=== PATIENT | female | born 1950 | race Caucasian/White ===

== ENCOUNTER 2023-12-04 18:50 | Observation (INO) | payer MEDICARE ==
[2023-12-05] MEDS ORDERED: Ondansetron PF 4 MG/2 ML Vial IVP PRN (00:09)
[2023-12-05] MEDS ORDERED: Ondansetron ODT 4 MG TAB PO PRN (00:09)
[2023-12-05] MEDS ORDERED: Acetaminophen 325 MG TAB PO PRN (00:09)
[2023-12-05 00:18] VITALS: BMI 32.1
[2023-12-05] MEDS: Atorvastatin Calcium 10 MG TAB PO SCH (00:58)
[2023-12-05] MEDS: Nitroglycerin 2% Ointment 1 INCH/1 GM Packet TOP SCH (00:58)
[2023-12-05 01:38] LABS: #Basophils 0.05 10x3/uL (0.0-0.2); %Basophils 0.6 % (0.0-1.0); %Eosinophils 6.9 % (0.0-10.0); %Lymphocytes 21.3 % (21.0-51.0); %Monocytes 9.4 % (0.0-10.0); %Neutrophils 61.4 % (42.0-75.0); Hematocrit 41.1 % (36.0-47.0); Hemoglobin 13.6 g/dL (12.0-16.0); Mean Corpuscular HGB CONC 33.1 g/dL (32.0-36.0); Mean Corpuscular Hemoglobin 30.4 pg (27.0-31.0); Mean Corpuscular Volume 91.7 fL (78.0-98.0); Mean Platelet Volume 9.3 fL (7.4-10.4); Platelet Count 270 10x3/uL (130-400); RBC Distribution Width 13.1 % (11.5-14.5); Red Blood Cell (RBC) Count 4.48 mill/uL (4.20-5.40)
[2023-12-05 01:55] LABS: ALT (SGPT) 14 U/L (8-55); AST (SGOT) 15 U/L (5-34); Albumin 3.5 g/dL (3.4-4.8); Alkaline Phosphatase 68 U/L (40-110); Anion Gap 17 mmol/L (10-20); BUN (Urea Nitrogen) 15 mg/dL (9.8-20.1); Bilirubin, Total 0.7 mg/dL (0.2-1.2); Calc. Creatinine Clearance 96 mL/min (70-130); Calcium 9.1 mg/dL (7.8-10.44); Carbon Dioxide 21 mmol/L (23-31); Chloride 107 mmol/L (98-107); Estimated GFR 80; Globulin 2.6 g/dL (2.4-3.5); Glucose 104 mg/dL (83-110); Potassium 3.7 mmol/L (3.5-5.1); Protein, Total 6.1 g/dL (5.8-8.1); Sodium 141 mmol/L (136-145)
[2023-12-05 01:58] LABS: Troponin I Less than 0.010 ng/mL (< 0.028)
[2023-12-05 05:20] LABS: Cardiac Risk 2.2 (Less than 4.5)
[2023-12-05 05:34] LABS: Troponin I Less than 0.010 ng/mL (< 0.028)
[2023-12-05] MEDS ORDERED: Regadenoson 0.4 MG/5 ML SYRINGE ONE (11:20)
[2023-12-05] MEDS: Carvedilol 6.25 MG TAB PO SCH (12:53)
[2023-12-05 13:04] VITALS: TEMP 97.7
[2023-12-05] MEDS: Aspirin Chewable 81 MG TAB PO SCH (13:45)
[2023-12-05] MEDS: Mirabegron ER 25 MG ER.TAB PO SCH (13:45)
[2023-12-05] MEDS: Calcium Carbonate 600 MG + Vit D TAB PO SCH (13:45)
[2023-12-05] MEDS: Clopidogrel Bisulfate 75 MG TAB PO SCH (13:45)
[2023-12-05 16:28] VITALS: BP 132/94
[2023-12-05] MEDS ORDERED: Atorvastatin Calcium 10 MG TAB PO SCH (21:00)
== END 2023-12-05 17:21 | disposition home or self-care (01) ==
LOC: 2SW 21:48
PROVIDERS: ADMIT Family Medicine; ATTEND Family Medicine
DX: R07.89 Other chest pain (principal); I25.10 Atherosclerotic heart disease of native coronary artery without angina pectoris; Z88.0 Allergy status to penicillin; Z88.1 Allergy status to other antibiotic agents; Z88.2 Allergy status to sulfonamides; Z88.8 Allergy status to other drugs, medicaments and biological substances; Z95.818 Presence of other cardiac implants and grafts
CPT/HCPCS: 78452; 80053; 80061; 84484 ×2; 85025; 93017; 93306; A9502; G0378; J2785 ×2; 36415